=== PATIENT | female | born 1980 | race Two or more races ===

== ENCOUNTER 2023-08-12 10:49 | Emergency (ER) | payer BC, OTHER ==
[~2023-08-12] VITALS: Ht 167.6 cm; Wt 91.6 kg
[2023-08-12 12:43] VITALS: BP 126/85; PULSE 92; RESP 18; O2SAT 98
[2023-08-12] MEDS ORDERED: IBUPROFEN 800 MG TAB PO ONE (12:45)
[2023-08-12 12:58] VITALS: TEMP 98.7
== END 2023-08-12 13:06 | disposition home or self-care (01) ==
LOC: ER 10:49
DX: G44.319 Acute post-traumatic headache, not intractable (principal)
CPT/HCPCS: 70450